=== PATIENT | female | born 1955 | race Caucasian/White ===

== ENCOUNTER 2024-08-24 13:53 | Inpatient (IN) | payer MEDICARE ==
[~2024-08-24] VITALS: Ht 172.7 cm; Wt 80.0 kg
[2024-08-24 13:58] VITALS: BP 137/63
[2024-08-24 14:24] LABS: BASO % 0.3 % (0.0-1.0); EOS # 0.1 10*3/uL (0.0-0.4); HEMATOCRIT 38.9 % (37.0-47.0); LYMPH # 1.5 10*3/uL (1.3-4.4); MEAN CELL VOLUME 93.3 fl (81.0-99.0); MEAN CORPUSCULAR HGB 30.5 pg (27.0-31.0); MEAN CORPUSCULAR HGB CONC 32.6 g/dl (33.0-37.0); MONO # 0.8 10*3/uL (0.1-1.0); MONO % 7.2 % (3.0-9.0); NEUT # 8.1 10*3/uL (2.3-7.9); NEUT % 76.9 % (47.0-73.0); PLATELET COUNT AUTOMATED 239 10*3/uL (130-400); RED BLOOD COUNT 4.17 10*6/uL (4.10-5.10); RED CELL DISTRI WIDTH 13.6 % (0-14.5); WHITE BLOOD COUNT 10.5 10*3/uL (4.8-10.8)
[2024-08-24 14:44] LABS: ALKALINE PHOSPHATASE 87 U/L (46-116); BUN 13 mg/dl (9-23); CHLORIDE 107 mmol/L (98-107); POTASSIUM 4.2 mmol/L (3.4-5.1); SGPT/ALT 8 U/L (5-49)
[2024-08-24 14:47] LABS: ACT PARTIAL THROMBO TIME 26.6 SECONDS (20.0-32.1)
[2024-08-24] MEDS ORDERED: MORPHINE Sulfate 2 MG/ML SYR IV ONE (14:50)
[2024-08-24] MEDS ORDERED: HYDROmorphONE Hydrochloride 0.5 MG/0.5 ML SYRINGE IV ONE ×2 (16:20→17:15)
[2024-08-24 16:25] VITALS: BP 133/80
[2024-08-24] MEDS ORDERED: Ondansetron Hydrochloride 4 MG/2 ML VIAL IV PRN (17:45)
[2024-08-24] MEDS ORDERED: SODIUM CHLORIDE 0.9% 1,000 ML IV ONE (17:50)
[2024-08-24 17:53] VITALS: BP 127/79
[2024-08-24] MEDS ORDERED: Ketorolac Tromethamine 30 MG/ML VIAL IV ONE (19:00)
[2024-08-24] MEDS ORDERED: HYDROmorphONE Hydrochloride 1 MG/ML SYR IV PRN (19:30)
[2024-08-24 19:38] VITALS: BP 118/65
[2024-08-24 22:06] VITALS: BP 113/61
[2024-08-24 22:35] VITALS: BP 141/85
[2024-08-25] VITALS (10 sets, daily range): BP systolic 107–126; BP diastolic 52–91
[2024-08-25] MEDS ORDERED: Ketorolac Tromethamine 30 MG/ML VIAL IV ONE (02:35)
[2024-08-25 06:35] LABS: BASO % 0.2 % (0.0-1.0); EOS # 0.1 10*3/uL (0.0-0.4); EOS % 0.8 % (1.0-4.0); HEMATOCRIT 37.7 % (37.0-47.0); LYMPH # 1.3 10*3/uL (1.3-4.4); LYMPH % 14.6 % (27.0-41.0); MEAN CELL VOLUME 94.3 fl (81.0-99.0); MEAN CORPUSCULAR HGB CONC 31.8 g/dl (33.0-37.0); MEAN PLATELET VOLUME 9.8 fl (9.6-12.3); MONO # 1.1 10*3/uL (0.1-1.0); MONO % 12.2 % (3.0-9.0); NEUT # 6.2 10*3/uL (2.3-7.9); NEUT % 71.7 % (47.0-73.0); PLATELET COUNT AUTOMATED 205 10*3/uL (130-400); RED CELL DISTRI WIDTH 13.7 % (0-14.5); WHITE BLOOD COUNT 8.6 10*3/uL (4.8-10.8)
[2024-08-25 07:08] LABS: BUN 15 mg/dl (9-23); CHLORIDE 110 mmol/L (98-107); CHOLESTEROL 146 mg/dL (<200); LDL CHOLESTEROL 76 mg/dL (9-159); POTASSIUM 3.8 mmol/L (3.4-5.1); TRIGLYCERIDES 82 mg/dl (<150)
[2024-08-25] MEDS ORDERED: Lactated Ringer's Solution 1,000 ML IV ONE (07:17)
[2024-08-25] MEDS ORDERED: TRANEXAMIC ACID IN NACL,ISO-OS 100 ML IV ONE ×2 (07:27→08:00)
[2024-08-25] MEDS ORDERED: ceFAZolin sodium/sodium chlor 20 ML IV ONE ×2 (07:27→08:00)
[2024-08-25] MEDS ORDERED: Lactated Ringer's Solution 1,000 ML IV SCH (07:35)
[2024-08-25] MEDS ORDERED: ACETAMINOPHEN 100 ML IV ONE (07:52)
[2024-08-25] MEDS ORDERED: Cholecalciferol 2,000 UNIT TABLET (50 MCG) PO SCH (10:00)
[2024-08-25] MEDS ORDERED: ceFAZolin sodium 1 GM in SYRINGE INFUSION 10 ML IV SCH (14:00)
[2024-08-26] VITALS: BP 114/65
[2024-08-26 06:38] LABS: BUN 13 mg/dl (9-23); CHLORIDE 106 mmol/L (98-107); POTASSIUM 3.8 mmol/L (3.4-5.1)
[2024-08-26 08:00] VITALS: BP 118/47
[2024-08-26] MEDS ORDERED: ASPIRIN ENTERIC COATED 81 MG TAB PO SCH (10:00)
[2024-08-26 12:00] VITALS: BP 117/62
[2024-08-26 16:00] VITALS: BP 116/67
[2024-08-26 20:00] VITALS: BP 129/63
[2024-08-27] VITALS: BP 126/66
[2024-08-27 05:54] LABS: BUN 14 mg/dl (9-23); CHLORIDE 106 mmol/L (98-107); POTASSIUM 3.6 mmol/L (3.4-5.1)
[2024-08-27 06:20] LABS: BASO % 0.3 % (0.0-1.0); EOS # 0.1 10*3/uL (0.0-0.4); EOS % 0.5 % (1.0-4.0); HEMATOCRIT 35.9 % (37.0-47.0); LYMPH # 1.7 10*3/uL (1.3-4.4); LYMPH % 14.5 % (27.0-41.0); MEAN CELL VOLUME 93.2 fl (81.0-99.0); MEAN CORPUSCULAR HGB 30.6 pg (27.0-31.0); MEAN CORPUSCULAR HGB CONC 32.9 g/dl (33.0-37.0); MEAN PLATELET VOLUME 10.8 fl (9.6-12.3); MONO # 1.4 10*3/uL (0.1-1.0); MONO % 12.1 % (3.0-9.0); NEUT # 8.4 10*3/uL (2.3-7.9); NEUT % 72.1 % (47.0-73.0); PLATELET COUNT AUTOMATED 227 10*3/uL (130-400); RED BLOOD COUNT 3.85 10*6/uL (4.10-5.10); RED CELL DISTRI WIDTH 13.8 % (0-14.5); WHITE BLOOD COUNT 11.7 10*3/uL (4.8-10.8)
[2024-08-27 08:00] VITALS: BP 108/53
[2024-08-27] MEDS ORDERED: Ondansetron Hydrochloride 4 MG TAB PO ONE (08:45)
[2024-08-27] MEDS ORDERED: Dexamethasone Sodium Phospha 4 MG/ML VIAL IV ONE (10:33)
[2024-08-27] MEDS ORDERED: Ketamine Hydrochloride 500 MG/10 ML VIAL IV ONE (10:33)
[2024-08-27] MEDS ORDERED: PROPOFOL 200 MG/20 ML VIAL IV ONE (10:33)
[2024-08-27] MEDS ORDERED: Midazolam Hydrochloride 2 MG/2 ML VIAL IV ONE (10:33)
[2024-08-27] MEDS ORDERED: Phenylephrine Hydrochloride 1 MG/10 ML SYRINGE IV ONE (10:33)
[2024-08-27] MEDS ORDERED: Ondansetron Hydrochloride 4 MG/2 ML VIAL IV ONE (10:33)
[2024-08-27] MEDS ORDERED: Phenylephrine Hydrochloride 10 MG/ML VIAL IV ONE (10:33)
[2024-08-27] MEDS ORDERED: fentaNYL CITRATE 100 MCG/2 ML VIAL IV ONE (10:33)
[2024-08-27] MEDS ORDERED: GLYCOPYRROLATE IN WATER/PF 0.4 MG/2 ML SYRINGE IV ONE (10:33)
[2024-08-27] MEDS ORDERED: HYDROCODONE-AC1 EAC1 PO (11:26)
[2024-08-27] MEDS ORDERED: VITAMIN D350 MCG PO (11:26)
[2024-08-27] MEDS ORDERED: ASPIRIN ADULT L81 M2 PO (11:26)
[2024-08-27 12:00] VITALS: BP 112/56
== END 2024-08-27 13:40 | DRG 522 ==
LOC: ED 13:53 → EDHOLD 17:26 → 4E 17:26
PROVIDERS: Internal Medicine; Orthopaedic Surgery; Student in an Organized Health Care Education/Training Program; ADMIT Internal Medicine; ATTEND Internal Medicine
PROC: 0SRS01Z Replacement of Left Hip Joint, Femoral Surface with Metal Synthetic Substitute, Open Approach (ICD-10-PCS; principal; 2024-08-25)
DX: S72.032A Displaced midcervical fracture of left femur, initial encounter for closed fracture (principal); R65.10 Systemic inflammatory response syndrome (SIRS) of non-infectious origin without acute organ dysfunction; R73.9 Hyperglycemia, unspecified; F17.210 Nicotine dependence, cigarettes, uncomplicated; E87.8 Other disorders of electrolyte and fluid balance, not elsewhere classified; R26.2 Difficulty in walking, not elsewhere classified; W01.0XXA Fall on same level from slipping, tripping and stumbling without subsequent striking against object, initial encounter; Y93.01 Activity, walking, marching and hiking; Y99.8 Other external cause status; Y92.830 Public park as the place of occurrence of the external cause; Z90.710 Acquired absence of both cervix and uterus; Z90.721 Acquired absence of ovaries, unilateral

== ENCOUNTER → 2024-09-13 | Outpatient (CLI) | payer MEDICARE ==
[~2024-09-13] MED LIST: ASPIRIN ADULT L81 M2 PO; HYDROCODONE-AC1 EAC1 PO; VITAMIN D350 MCG PO
== END | disposition home or self-care (01) ==
LOC: ORTHO 01:16
PROVIDERS: ATTEND Orthopaedic Surgery
DX: S72.032D Displaced midcervical fracture of left femur, subsequent encounter for closed fracture with routine healing (principal); Z96.642 Presence of left artificial hip joint; X58.XXXD Exposure to other specified factors, subsequent encounter

== ENCOUNTER → 2024-10-11 | Outpatient (CLI) | payer MEDICARE | END | disposition home or self-care (01) | LOC: EDSTATUS 03:19 → ORTHO 03:21 → RAD 17:21 | PROVIDERS: ATTEND Orthopaedic Surgery | DX: S72.032D Displaced midcervical fracture of left femur, subsequent encounter for closed fracture with routine healing (principal); X58.XXXD Exposure to other specified factors, subsequent encounter ==

== ENCOUNTER → 2024-12-02 | Outpatient (CLI) | payer MEDICARE | END | disposition home or self-care (01) | LOC: ORTHO 00:23 | PROVIDERS: ATTEND Orthopaedic Surgery | DX: S72.032D Displaced midcervical fracture of left femur, subsequent encounter for closed fracture with routine healing (principal); Z96.642 Presence of left artificial hip joint; X58.XXXD Exposure to other specified factors, subsequent encounter ==

== ENCOUNTER → 2025-09-01 | Outpatient (CLI) | payer MEDICARE | END | disposition home or self-care (01) | LOC: ORTHO 00:27 | PROVIDERS: ATTEND Orthopaedic Surgery | DX: S72.032D Displaced midcervical fracture of left femur, subsequent encounter for closed fracture with routine healing (principal); M85.852 Other specified disorders of bone density and structure, left thigh; X58.XXXD Exposure to other specified factors, subsequent encounter ==